=== PATIENT | female | born 1960 ===

== ENCOUNTER 2016-12-30 06:31 | Day surgery (SDC) | payer MEDICARE ==
[2016-12-30] MEDS ORDERED: WATER FOR IRRIG STERILE IR ONE (07:29)
--- NOTE | 2016-12-30 07:32 | Anesthesia Consultation ---
Anesthesia Consult and Med Hx Date of service: 12/30/16 - Airway Anesthetic Teeth Evaluation: Dentures (upper) ROM Head & Neck: Adequate Mental/Hyoid Distance: Inadequate Mallampati Class: Class II Intubation Access Assessment: Probably Good - Pulmonary Exam CTA: Yes - Cardiac Exam Cardiac Exam: RRR - Pre-Operative Health Status ASA Pre-Surgery Classification: ASA3 Proposed Anesthetic Plan: MAC - Pulmonary Hx Smoking: Yes (current) Hx Sleep Apnea: No (high risk) - Cardiovascular System Hx Hypertension: Yes - Central Nervous System Hx Neuromuscular Disorder: No Hx Psychiatric Problems: No - Gastrointestinal Hx Gastroesophageal Reflux Disease: Yes (severe) - Endocrine Hx Renal Disease: No Hx Insulin Dependent Diabetes: Yes - Hematic Hx Anemia: No Hx Sickle Cell Disease: No - Other Systems Hx Alcohol Use: No Hx Substance Use: No Hx Cancer: No Hx Obesity: No
--- NOTE | 2016-12-30 07:33 | Anesthesia Day of Surgery ---
Anesthesia Day of Surgery - Day of Surgery Patient Examined: Yes Patient H&P Reviewed: Yes Patient is NPO: Yes
--- NOTE | 2016-12-30 07:39 | Discharge Summary ---
Providers - Providers Date of discharge: 12/30/16 Attending physician: CHUNG DOWNING Primary care physician: ANTOINETTE HOBSON Hospitalization Condition: Good Procedures: egd Disposition: - TO HOME OR SELFCARE Core Measure Documentation - Palliative Care Palliative Care/ Comfort Measures: Not Applicable - Core Measures Any of the following diagnoses?: none Exam - Physical Exam Narrative exam: unchanged from pre-op Plan Activity: no restrictions Weight Bearing Status: Full Weight Bearing Diet: regular Follow up with: ANTOINETTE HOBSON MD [Primary Care Provider] - 7 Days
--- NOTE | 2016-12-30 07:56 | Operative Report ---
Operative Report Operative Report: EGD Post bypass DATE: 12/30/16 OPERATIVE REPORT - EGD PREOP DIAGNOSIS: gastric dyspepsia POSTOP DIAGNOSIS: same SURGERY: 1.Upper endoscopy. 2. esophageal mucosal bx SURGEON: Martha Hedrick M.D. TYPE OF ANESTHESIA: MAC. ESTIMATED BLOOD LOSS: None. COMPLICATIONS: None. SPECIMENS REMOVED: None. FINDINGS: 1. white plaques on the esophageal mucosa 2. gastric pouch - 50ml 3. gastrojejunal anastomosis is 20mm 4. hiatal hernia INDICATIONS:INDICATION FOR PROCEDURE: Patient is a 56-year-old female s/p gastric bypass. The patient is here today for evaluation looking for any pathology that could explain her symptoms and to determine if she is a candidate for revision of her gastric bypass. PROCEDURE DETAILS: After consent was reviewed, patient was taken back to the operating room where patient was placed in the left lateral decubitus position and a bite block was placed in the mouth. After a time-out was called, MAC anesthesia was initiated. I then passed the endoscope into the patients oropharynx, into the esophagus, visualized the entire esophagus, which showed some white plaques that were able to be scraped off with the scope. A biospy of the mucosa under one of the plaques was obtained. there was also noted to be a hiatal hernia while descending into the stomach pouch. I then visualized the gastric pouch which was normal and about 50ml in size. The gastrojejunal anastomosis was normal at about 20mm. The proximal portion of the yoly limb was normal. I then desufflated the gastric pouch and removed the endoscope. Patient tolerated procedure well and was transferred to recovery room in good and stable condition.
[2016-12-30] MEDS ORDERED: NACL 0.9% 1000 ML 1,000 ML IV SCH (08:30)
[2016-12-30] MEDS ORDERED: DIPRIVAN 10 MG/ML IV ONE (10:11)
[2016-12-30 10:55] VITALS: BP 150/77
--- NOTE | 2016-12-30 11:47 | Post Anesthesia Evaluation ---
- Post Anesthesia Evaluation Patient Participated: Yes Airway Patent: Yes Stable Respiratory Function: Yes Nausea/Vomiting: No Temp > 96.8F: Yes Pain Manageable: Yes Adequeate Hydration: Yes Anesthesia Complications: No Block Receding Appropriately: Not Applicable Patient on Ventilator: No
== END 2016-12-30 06:32 | disposition home or self-care (01) ==
LOC: GIO 06:31
PROVIDERS: ATTEND Surgery
DX: K44.9 Diaphragmatic hernia without obstruction or gangrene (principal); K21.0 Gastro-esophageal reflux disease with esophagitis; E78.5 Hyperlipidemia, unspecified; E11.9 Type 2 diabetes mellitus without complications; F17.210 Nicotine dependence, cigarettes, uncomplicated; I10 Essential (primary) hypertension; Z98.84 Bariatric surgery status; Z98.890 Other specified postprocedural states
CPT/HCPCS: 43239; 88305; J2704; J7030